=== PATIENT | female | born 1960 | race American Indian/Alaskan Native ===

== ENCOUNTER 2021-08-27 07:18 | Day surgery (SDC) | payer BC ==
[2021-08-27] MEDS ORDERED: ASPIRIN EC 325 MG TAB PO NR (07:46)
[2021-08-27 08:13] LABS: Basophils % (Auto) 0.5 % (0.0-1.8); Eosinophils # (Auto) 0.2 K/mm3 (0.0-0.4); Eosinophils % (Auto) 3.8 % (0.0-4.3); Hematocrit 35.4 % (30.3-42.9); Lymphocytes % (Auto) 30.7 % (13.4-35.0); Mean Corpuscular HGB Conc 31 % (30-34); Mean Corpuscular Volume 84 fl (79-97); Monocytes # (Auto) 0.4 K/mm3 (0.0-0.8); Monocytes % (Auto) 6.6 % (0.0-7.3); Platelet Count 311 K/mm3 (140-440); Red Cell Distribution Width 13.4 % (13.2-15.2)
[2021-08-27] MEDS: SODIUM CHLORIDE 0.9% 500 ML 500 ML IV SCH ×2 (08:19→09:36)
[2021-08-27 08:22] LABS: INR 0.86 (0.87-1.13)
[2021-08-27 08:23] LABS: Partial Thromboplastin Time 26.1 Sec. (24.2-36.6)
[2021-08-27 08:26] LABS: BUN/Creatinine Ratio 19; Blood Urea Nitrogen 15 mg/dL (7-17); Calcium 9.5 mg/dL (8.4-10.2); Hemolysis Index 1
[2021-08-27] MEDS ORDERED: HEPARIN 10,000 UNITS/10 ML VIAL ONE (08:54)
[2021-08-27] MEDS ORDERED: HEPARIN/NS 5000 UNIT/500ML 1,000 ML IR ONE (08:54)
[2021-08-27] MEDS ORDERED: NITROGLYCERIN SYRINGE 3 ML ONE (08:55)
[2021-08-27] MEDS ORDERED: VERAPAMIL 5 MG/2 ML INJ ONE (08:55)
[2021-08-27] MEDS ORDERED: fentaNYL 100 MCG/2 ML INJ ONE (09:07)
[2021-08-27] MEDS: MIDAZOLAM 2 MG/2 ML INJ ONE ×2 (09:34→09:38)
[2021-08-27] MEDS: LIDOCAINE (1%) 10 MG/1 ML VIAL 20 ML MDV ONE ×2 (09:35→09:43)
[2021-08-27] MEDS ORDERED: HYDROcodone/ACETAMINOPHEN 5-325 MG TAB PO PRN (10:00)
[2021-08-27] MEDS ORDERED: traMADol 50 MG TAB PO PRN (10:00)
--- NOTE | 2021-08-27 10:02 | Short Stay Summary ---
Short Stay Documentation Date of service: 08/27/21 - History H&P: obtained from office - Allergies and Medications Current Medications: Allergies No Known Allergies Allergy (Unverified 08/27/21 07:45) Home Medications Medication Instructions Recorded Confirmed Last Taken Type Cholecalciferol (Vitamin D3) 50 mcg PO DAILY 08/27/21 08/27/21 08/26/21 History [Vitamin D3] 50 mcg Cyclobenzaprine HCl [Flexeril 5 MG 5 mg PO DAILY 08/27/21 08/27/21 08/26/21 History TAB] 5 mg Losartan [Cozaar] 100 mg PO DAILY 08/27/21 08/27/21 08/26/21 History 100 mg Naproxen 500 mg PO DAILY 08/27/21 08/27/21 08/26/21 History 500 mg Pantoprazole [Protonix TAB] 40 mg PO DAILY 08/27/21 08/27/21 08/26/21 History 40 mg Spironolactone [Aldactone] 25 mg PO DAILY 08/27/21 08/27/21 08/26/21 History 25 mg Vit B12/Folic Acid/B6/Aa No.15 1 each PO DAILY 08/27/21 08/27/21 08/26/21 History [Glycotrol Capsule] 1 tab amLODIPine 10 mg PO DAILY 08/27/21 08/27/21 08/26/21 History 10 mg Active Medications Sodium Chloride (Nacl 0.9% 500 Ml) 500 mls @ 50 mls/hr IV DIRECT LAURA Stop: 08/27/21 17:59 Last Admin: 08/27/21 09:36 Dose: 50 mls/hr - Brief post op/procedure progress note Date of procedure: 08/27/21 Pre-op diagnosis: chest pain Post-op diagnosis: same Procedure: see report, normal cath Anesthesia: local Estimated blood loss: minimal Pathology: none - Disposition Condition at discharge: Good Disposition: 01 HOME / SELF CARE / HOMELESS - Discharge Diagnoses (1) Chest pain Status: Chronic Qualifiers: Chest pain type: unspecified Qualified Code(s): R07.9 - Chest pain, unspecified Short Stay Discharge Plan Activity: advance as tolerated Diet: low fat, low cholesterol Wound: keep clean and dry Follow up with: GUSTAVO JANE MD [Primary Care Provider] - 7 Days
[2021-08-27] MEDS ORDERED: ATROPINE 0.1% (1 MG/10 ML) CARDIAC SYRINGE ONE (10:10)
[2021-08-27 14:40] VITALS: BP 118/62
--- NOTE | 2021-08-28 11:29 | Electrocardiograph Report ---
[facility] Test Date: 2021-08-27 Test Time: 07:59:29 Pat Name: SYL FLORESDepartment: Room: Gender: F Human Resources Representative: ANA LUISA : 1960 Requested By: FORREST VIGIL Order Number: [id number] Reading MD: Forrest Vigil Measurements Intervals [place] Rate: 61 P: 32 PA: 218 QRS: 6 QRSD: 81 T: 35 QT: 391 QTc: 395 Interpretive Statements Sinus rhythm Prolonged PA interval No previous ECG available for comparison Electronically Signed On 08-28-2021 11:28:45 EDT by Forrest Vigil
--- NOTE | 2021-09-03 13:40 | Cardiac Catherization Report ---
DATE OF SERVICE: 08/27/2021 LEFT HEART CATHETERIZATION BEING DONE BY: Forrest Vigil MD CLINICAL INFORMATION: A 60-year-old female who had a heart catheterization at [facility], who has hypertension, abnormal stress test, ordering physician, Dr. Monique. MPI revealed mild ischemia. The patient was done with moderate sedation, started at 9:35, finished at 9:50, 15 minutes of moderate sedation. DESCRIPTION OF PROCEDURE: Procedure was done via the right radial artery, sterile technique and local anesthesia. A 6-[place] radial sheath inserted. Left system with JL3.5 catheter. Left main is large and patent. LAD is a medium caliber vessel, is patent. Diagonal 1 is a [id number] caliber vessel, patent. Circumflex medium caliber was patent. OM1, OM2 stjgx-ff-gpquje caliber, patent. RCA, dominant vessel, was patent with normal LV function, EF 55-60%. LVEDP 22 mmHg, LV is 137, aortic is 137/76. No gradient across the aortic valve on pullback. The 5-[place] catheters all taken over a guidewire. The 6-[place] radial sheath was discontinued. The patient was done actually via the right common femoral artery. The 5-[place] groin sheath was discontinued. Manual pressure held. No hematoma, no bleeding. SUMMARY: Left heart catheterization performed in the right common femoral artery. Right radial was not approachable, had patent coronaries, left main patent, LAD patent, circumflex patent, RCA patent with normal LV function. The patient tolerated the procedure well. TID: [id number] RECEIPT: [id number] JANE/KAMRYN/AZALIA
--- NOTE | 2021-09-03 14:25 | Cardiac Catherization Report ---
DATE OF SERVICE: 08/27/2021 LEFT HEART CATHETERIZATION CLINICAL INFORMATION: This is a 60-year-old -[place] female with obesity, persistent chest pain despite negative cardiac workup, is here for left heart catheterization. Procedure was done with moderate sedation at 09:35, finished at 09:50. DESCRIPTION OF PROCEDURE: Procedure was initially tried via the right radial approach, but could not get access, went to the right common femoral artery, sterile technique and local anesthesia. A 5-[place] groin sheath inserted. Left system engaged with JR4 catheter. Left main is large and patent, bifurcates into medium to large caliber LAD with moderate tortuosity. Diagonal 1 is a small to medium caliber, patent, moderate tortuosity. Circumflex is a medium caliber vessel, is patent, goes into OM1, OM2, small to medium caliber vessel, patent with moderate tortuosity. RCA engaged with JR4 is a large, dominant vessel, is patent. PDA, PLV are small to medium caliber vessels, are patent. LV gram done in FINNISH and RUBIN view shows normal LV function, EF 55-60%, LVEDP of 22 mmHg, LV is 137, aortic is 137/76. No gradient across the aortic valve on pullback. The 5-[place] catheters all taken over a guidewire, 5-[place] groin sheath discontinued, manual pressure held. No hematoma, no bleeding. SUMMARY: Left main patent, LAD patent, circumflex patent, RCA patent with cufxbcon-si-ayrdpy tortuosity of vessels with normal LV function, noncardiac chest pain with normal left end-diastolic pressure. TID: [id number] RECEIPT: [id number] JANE/ZOE/RONDA
== END 2021-08-27 15:18 | disposition home or self-care (01) ==
LOC: CATHLABREC 07:18
PROVIDERS: ATTEND Internal Medicine
DX: R94.39 Abnormal result of other cardiovascular function study (principal); I10 Essential (primary) hypertension; I47.2 Ventricular tachycardia; I49.3 Ventricular premature depolarization; E66.09 Other obesity due to excess calories; R07.9 Chest pain, unspecified; G62.9 Polyneuropathy, unspecified; I20.8 Other forms of angina pectoris; K21.9 Gastro-esophageal reflux disease without esophagitis; M19.90 Unspecified osteoarthritis, unspecified site; Z82.5 Family history of asthma and other chronic lower respiratory diseases; Z86.711 Personal history of pulmonary embolism; Z86.79 Personal history of other diseases of the circulatory system; Z79.899 Other long term (current) drug therapy; Z90.49 Acquired absence of other specified parts of digestive tract; Z98.890 Other specified postprocedural states; Z82.61 Family history of arthritis; Z83.3 Family history of diabetes mellitus; Z80.8 Family history of malignant neoplasm of other organs or systems; Z68.37 Body mass index [BMI] 37.0-37.9, adult
CPT/HCPCS: 36415; 80048; 85025; 85610; 85730; 93005; 93458; 99156; C1894; J1644; J1815; J2250; J3010; J7040; J0461; Q9967